=== PATIENT | male | born 1955 | race Caucasian/White ===

== ENCOUNTER 2019-06-03 13:03 | Emergency (ER) | payer MEDICARE, MEDICAID ==
[~2019-06-03] VITALS: Ht 177.8 cm; Wt 81.0 kg
[~2019-06-03 13:03] MED LIST: LOSA50TA3 PO; METO-411 PO
[2019-06-03] MEDS ORDERED: LORazepam 2 mg/ml vial ONE (13:13)
--- NOTE | 2019-06-03 13:22 | NUR ---
TELE NEURO CONSULT HAS BEEN INIITATED
[2019-06-03 13:23] LABS: BASOPHILS # (AUTO) 0.1 X10'3 (0-0.2); BASOPHILS % (AUTO) 1.7 % (0-1); EOSINOPHILS # (AUTO) 0.3 X10'3 (0-0.9); EOSINOPHILS % (AUTO) 3.9 % (0-6); HEMATOCRIT 42.9 % (42.0-52.0); HEMOGLOBIN 14.4 g/dl (14.0-17.9); LYMPHOCYTES # (AUTO) 2.5 X10'3 (1.1-4.8); LYMPHOCYTES % (AUTO) 29.6 % (21-51); MEAN CORPUSCULAR HEMOGLOBIN 33.5 PG (27.0-31.0); MEAN CORPUSCULAR HGB CONC 33.5 g/dL (33.0-36.5); MEAN CORPUSCULAR VOLUME 99.8 FL (78-98); MEAN PLATELET VOLUME 7.8 FL (7.4-10.4); MONOCYTES # (AUTO) 1.1 X10'3 (0-0.9); MONOCYTES % (AUTO) 13.2 % (2-12); NEUTROPHILS # (AUTO) 4.3 X10'3 (1.8-7.7); NEUTROPHILS % (AUTO) 51.6 % (42-75); PLATELET COUNT 306 X10'3 (140-440); RED CELL DISTRIBUTION WIDTH 13.6 % (11.5-14.5); WHITE BLOOD COUNT 8.4 X10'3 (4.5-11.0)
[2019-06-03] MEDS ORDERED: levetiracetam inj 1,000 MG in normal saline 100ml IV soln 90 ML IV STA (13:23)
[2019-06-03 13:37] LABS: PARTIAL THROMBOPLASTIN TIME 25 SECONDS (22-32)
[2019-06-03 13:38] LABS: ALANINE AMINOTRANSFERASE 38 U/L (12-78); ALBUMIN 4.4 G/DL (3.4-5.0); ALBUMIN/GLOBULIN RATIO 0.9 (1.1-1.5); ALKALINE PHOSPHATASE 129 IU/L (46-116); ANION GAP 18 (8-16); ASPARTATE AMINO TRANSFERASE 41 U/L (10-37); BILIRUBIN,TOTAL 0.7 MG/DL (0.1-1.0); BLOOD UREA NITROGEN 17 MG/DL (7-18); CALCIUM 9.7 MG/DL (8.5-10.1); CHLORIDE 98 MMOL/L (99-107); CREATININE 1.31 MG/DL (0.60-1.10); GLUCOSE 164 MG/DL (70-104); POTASSIUM 4.2 MMOL/L (3.5-5.1); SODIUM 134 MMOL/L (135-145); TOTAL PROTEIN 9.1 G/DL (6.4-8.2); eGFR 55 ML/MIN
[2019-06-03 13:42] LABS: TROPONIN I < 0.04 NG/ML (0.0-0.05)
[2019-06-03] MEDS ORDERED: LORazepam 2 mg/ml vial IV ONE ×2 (13:50→14:00)
[2019-06-03 14:29] VITALS: BP 95/45
--- NOTE | 2019-06-03 17:32 | NUR ---
ALL STROKE ASSESSMENTS DONE BY STROKE NURSE ANGELA
== END 2019-06-03 17:33 | disposition short-term general hospital (02) ==
LOC: ER 13:04
DX: S06.5X0A Traumatic subdural hemorrhage without loss of consciousness, initial encounter (principal); S01.512A Laceration without foreign body of oral cavity, initial encounter; R41.82 Altered mental status, unspecified; R56.9 Unspecified convulsions; I10 Essential (primary) hypertension; F17.210 Nicotine dependence, cigarettes, uncomplicated; Z86.73 Personal history of transient ischemic attack (TIA), and cerebral infarction without residual deficits; Z79.899 Other long term (current) drug therapy; X58.XXXA Exposure to other specified factors, initial encounter; Y93.89 Activity, other specified; Y92.89 Other specified places as the place of occurrence of the external cause; Y99.9 Unspecified external cause status
CPT/HCPCS: 36415; 70450; 71045; 80053; 84484; 85025; 85610; 85730; 93005; 96365; 96375; 99291; 99292; J1953; J2060

== ENCOUNTER 2021-07-12 17:48 | Emergency (ER) | payer BC, MEDICAID ==
[~2021-07-12] VITALS: Ht 177.8 cm; Wt 68.0 kg
[2021-07-12 18:08] VITALS: BP 107/47
[2021-07-12] MEDS ORDERED: HYDR-3965 PO (19:25)
== END 2021-07-12 19:34 | disposition home or self-care (01) ==
LOC: ER 17:48
DX: S82.142A Displaced bicondylar fracture of left tibia, initial encounter for closed fracture (principal); M79.604 Pain in right leg; R53.1 Weakness; I10 Essential (primary) hypertension; Z86.73 Personal history of transient ischemic attack (TIA), and cerebral infarction without residual deficits; Z72.89 Other problems related to lifestyle; Z79.899 Other long term (current) drug therapy; W19.XXXA Unspecified fall, initial encounter; Y93.89 Activity, other specified; Y92.89 Other specified places as the place of occurrence of the external cause; Y99.8 Other external cause status
CPT/HCPCS: 73564; 73700; 99284

== ENCOUNTER 2022-12-27 09:43 | Emergency (ER) | payer BC, MEDICAID ==
[~2022-12-27] VITALS: Ht 177.8 cm; Wt 57.4 kg
[~2022-12-27 09:43] MED LIST changes: +LOSA-416 PO; -LOSA50TA3 PO
[2022-12-27 09:56] VITALS: BP 140/77
--- NOTE | 2022-12-27 10:03 | NUR ---
PER DR GOLDSTEIN NO HEAD CT AT THIS TIME UNTIL PT IS ASSESSED BY A PROVIDER
[2022-12-27] MEDS ORDERED: CEPH-585 PO (14:52)
[2022-12-27] MEDS ORDERED: bacitracin 15gm ointment TP ONE (14:55)
[2022-12-27] MEDS ORDERED: TETanus/Pertussis (Acell)/Diphther VAC/PF (Tdap-Adult) 0.5ml syringe IMVAC ONE (14:55)
[2022-12-27] MEDS ORDERED: LIDOcaine 1% 30ml preserv. free vial IJ ONE (14:55)
[2022-12-27] MEDS ORDERED: cephalexin 250mg capsule PO ONE (14:55)
--- NOTE | 2022-12-27 15:44 | NUR ---
Pt's caregiver at bedside states that he is acting at his baseline.
== END 2022-12-27 17:26 | disposition home or self-care (01) ==
LOC: ER 09:43
DX: S01.01XA Laceration without foreign body of scalp, initial encounter (principal); W19.XXXA Unspecified fall, initial encounter; Y93.89 Activity, other specified; Y92.89 Other specified places as the place of occurrence of the external cause; Y99.8 Other external cause status; I10 Essential (primary) hypertension; Z79.899 Other long term (current) drug therapy
CPT/HCPCS: 12002; 70450; 72125; 90471; 90715; 99285; J7030